=== PATIENT | male | born 1990 ===

== ENCOUNTER 2017-03-04 10:46 | Day surgery (SDC) | payer BC ==
[~2017-03-04 10:46] MED LIST: Lactated Ringers 1,000 ML IV SCH
[2017-03-04] MEDS ORDERED: Propofol 200 MG/20 ML SDV ONE ×2 (11:57→12:38)
[2017-03-04] MEDS ORDERED: Lidocaine 2% 5 ML SDV ONE (11:57)
[2017-03-04] MEDS ORDERED: Midazolam 1 MG/ML 2 ML SDV ONE (11:58)
[2017-03-04] MEDS ORDERED: fentaNYL 100 MCG/2 ML SDV ONE (11:58)
--- NOTE | 2017-03-04 12:05 | PCM.PREANE ---
Preanesthetic Assessment - Anesthesia/Transfusion/Family Hx Anesthesia History: Prior Anesthesia Without Reaction Family History of Anesthesia Reaction: No Transfusion History: No Prior Transfusion(s) Intubation History: Unknown - Review of Systems General: No Symptoms Pulmonary: No Symptoms Cardiovascular: No Symptoms Gastrointestinal: Hematochezia, Other (h/o colon polyps) Other: Reports: None - Physical Assessment NPO Status Date: 03/03/17 NPO Status Time: 23:30 O2 Sat by Pulse Oximetry: 96 Respiratory Rate: 16 Vital Signs: Last Vital Signs Temp 37.0 C 03/04/17 11:40 Pulse 62 03/04/17 11:40 Resp 16 03/04/17 11:40 BP 144/71 H 03/04/17 11:40 Pulse Ox 96 03/04/17 11:40 Height: 1.8 m Weight: 103.873 kg ASA Class: 2 Mental Status: Alert & Oriented x3 Airway Class: Mallampati = 2 Dentition: Reports: Normal Dentition Thyro-Mental Finger Breadths: 3 Mouth Opening Finger Breadths: 3 ROM/Head Extension: Full Lungs: Clear to Auscultation, Normal Respiratory Effort Cardiovascular: Regular Rate, Regular Rhythm - Allergies Allergies/Adverse Reactions: Allergies Allergy/AdvReac Type Severity Reaction Status Date / Time aspirin Allergy Severe Hives Verified 03/02/17 07:50 cantaloupe Allergy Hives Uncoded 03/02/17 10:31 - Blood Blood Available: No - Anesthesia Plan Pre-Op Medication Ordered: None - Acknowledgements Anesthesia Type Planned: MAC Pt an Appropriate Candidate for the Planned Anesthesia: Yes Alternatives and Risks of Anesthesia Discussed w Pt/Guardian: Yes Pt/Guardian Understands and Agrees with Anesthesia Plan: Yes PreAnesthesia Questionnaire HEENT History: Reports: None Gastrointestinal History: Reports: Colon Polyp, Diverticulosis Genitourinary History: Reports: Renal Calculus Other Genitourinary History: currently has kidney stone Musculoskeletal History: Reports: Fracture Endocrine/Metabolic History: Reports: Obesity/BMI 30+ - Past Surgical History Head Surgeries/Procedures: Reports: None HEENT Surgical History: Reports: Tonsillectomy GI Surgical History: Reports: Colonoscopy Male Surgical History: Reports: None Musculoskeletal Surgical History: Reports: Other (See Below) Other Musculoskeletal Surgeries/Procedures:: states hx of ORIF left pointer finger with hardware - SUBSTANCE USE Smoking Status *Q: Former Smoker Tobacco Use Within Last Twelve Months: Smokeless Tobacco Second Hand Smoke Exposure: No Recreational Drug Use History: No Recreational Drug Type: Reports: Marijuana/Hashish - HOME MEDS Home Medications: Home Meds Ascorbate Calcium [Vitamin C] 1 tab PO DAILY 04/03/15 [History] Echinacea 2 cap PO DAILY 04/03/15 [History] L.acidoph,Paracasei, B.lactis [Probiotic] 1 cap PO DAILY 04/03/15 [History] Zinc [Zinc Lozenge] 1 tab PO DAILY 04/03/15 [History] Psyllium with Sucrose [Metamucil] 1 each PO DAILY 06/14/15 [History] - CURRENT (IN HOUSE) MEDS Current Meds: Current Medications Lactated Ringer's (Ringers, Lactated) 1,000 mls @ 125 mls/hr IV ASDIRECTED [facility] Last Admin: 03/04/17 11:42 Dose: 125 mls/hr Discontinued Medications Fentanyl (Sublimaze) Confirm Administered Dose 100 mcg .ROUTE .STK-MED ONE Stop: 03/04/17 11:59 Lidocaine (Xylocaine-Mpf 2%) Confirm Administered Dose 10 ml .ROUTE .STK-MED ONE Stop: 03/04/17 11:58 Midazolam HCl (Versed 1 Mg/Ml) Confirm Administered Dose 2 mg .ROUTE .STK-MED ONE Stop: 03/04/17 11:59 Propofol (Diprivan 20 Ml) Confirm Administered Dose 400 mg .ROUTE .STK-MED ONE Stop: 03/04/17 11:58
--- NOTE | 2017-03-04 12:58 | PCM.OPNOTE ---
- General Post-Op/Procedure Note Date of Surgery/Procedure: 03/04/17 Operative Procedure(s): Colonoscopy with sigmoid and rectal biopsies Pre Op Diagnosis: Rectal bleeding. Personal history of colitis and colon polyps. Personal history of diverticulosis and diverticulitis. Post-Op Diagnosis: Nonspecific colitis. Sigmoid diverticulosis. Anesthesia Technique: MAC (ASA II) Primary Surgeon: Parveen Hartley Condition: Good Free Text/Narrative:: Dictation [id number] CPT CODE [id number]
[2017-03-04] MEDS ORDERED: Lactated Ringers 1,000 ML IV SCH (13:00)
[2017-03-04 13:16] VITALS: BP 128/71
--- NOTE | 2017-03-04 16:14 | OR ---
SURGEON: Parveen Hartley M.D. DATE OF PROCEDURE: 03/04/2017 OPERATION PERFORMED: Colonoscopy with random sigmoid and rectal biopsies. ANESTHESIA: MAC. ASA CLASSIFICATION: II. PREOPERATIVE DIAGNOSIS: Recent history of rectal bleeding with personal history of colon polyps and diverticulosis. POSTOPERATIVE DIAGNOSIS: Nonspecific colitis. DESCRIPTION OF PROCEDURE: The patient was taken to the endoscopy room and positioned on the endoscopy table in the left lateral decubitus position. Time-out was called for appropriate identification of the patient and procedure. Monitored anesthesia care was provided. The colonoscope was inserted into the rectum and advanced with minimal difficulty to the cecum where the colonoscope was retroflexed to visualize the ascending colon from below. The colonoscope was then straightened and slowly withdrawn. The cecum, ascending colon, hepatic flexure, transverse colon, splenic flexure were very well visualized. No tumors, polyps, diverticula, or angiodysplastic changes were noted. There was no evidence of inflammatory bowel disease. No ulcerations were noted. As the scope was withdrawn, scattered diverticula were noted in the sigmoid colon. No stricture, spasm, or bleeding was noted. There were no significant acute inflammatory changes. There were some mild irritative changes in the sigmoid colon. Biopsies of this area were obtained. The scope was then further withdrawn to the rectum, which again showed some nonspecific inflammatory changes. Again, biopsies were obtained. The colonoscope was withdrawn to the rectum and retroflexed to visualize the anal orifice from above. No tumors or polyps were seen and there were no acute hemorrhoidal changes noted. The colonoscope was then straightened, the rectum aspirated, and the colonoscope removed. The patient tolerated the procedure well and was taken to recovery room in stable condition. MARYANN VILLANUEVA /[id number]
== END 2017-03-04 13:25 | disposition home or self-care (01) ==
LOC: MW.SDS 10:46
PROVIDERS: ATTEND Surgery
DX: K52.9 Noninfective gastroenteritis and colitis, unspecified (principal); J30.9 Allergic rhinitis, unspecified; E66.9 Obesity, unspecified; Z86.010 Personal history of colon polyps; Z87.442 Personal history of urinary calculi; Z88.6 Allergy status to analgesic agent; Z91.018 Allergy to other foods; Z79.899 Other long term (current) drug therapy; Z90.89 Acquired absence of other organs; Z87.891 Personal history of nicotine dependence; Z68.32 Body mass index [BMI] 32.0-32.9, adult
CPT/HCPCS: 45380; J2250; J3010; J7120; 88305; J2704